=== PATIENT | female | born 1950 | race Caucasian/White ===

== ENCOUNTER 2018-10-23 23:16 | Emergency (ER) | payer MEDICARE, BC, SELFPAY ==
[2018-10-23 23:19] VITALS: BP 178/102; PULSE 72; RESP 18; TEMP 37.2; O2SAT 97
[2018-10-23 23:23] VITALS: BP 159/91; PULSE 70; RESP 18; O2SAT 97
--- NOTE | 2018-10-23 23:36 | W.ED.GENAD ---
Discharge Plan Disposition Patient Disposition: HOME Condition: Good Discharge Details Chief Complaint: EyeProblem Clinical Impression: Visual disturbance Primary Care Provider: Mary Beth Tam V ED Provider: Collins Teixeira Discharge Instructions Additional Instructions: At this time the ultrasound shows no evidence of retinal detachment. Your pressures of your eyes are on the higher side of normal but not requiring medications at this level. Please follow-up promptly with Dr. Josue tomorrow for reassessment. If you notice any worsening of your symptoms, or any new symptoms such as pain in your eyes, change in your vision, dark curtain over your vision, vomiting, diarrhea, fever, chills, shortness of breath, chest pain, numbness, weakness, or fainting , please return immediately to the emergency department for reevaluation. Please follow up with your primary care provider as soon as possible for reassessment and reevaluation. As always, it was a pleasure participating in your medical care today. [facility] Haylie, PJohannaCJohanna [address] [place] [id number] Referrals: EYE GUILLAUME AKHTAR [OTHER] - Discharge Data Discharge Date/Time-TO BE ENTERED AT DEPARTURE: 10/23/18 23:44 Medical Decision Making This is a pleasant 67-year-old female with no significant past medical history except for osteoporosis who presents today for evaluation of occasional lightninglike visual disturbances in her left eye. Symptoms have come and gone throughout the day. There is no associated decrease in vision, dark curtain, dark spots, or eye pain whatsoever. She denies any discomfort at all. She has no history of trauma, irritation to the eye, sensation of foreign body or other abnormality. She denies any history of stroke, or retinal problem in the past. Exam demonstrates a reactive pupil bilaterally, retinal exam is notably difficult in both eyes. Difficulty visualizing posterior structures well. Bedside limited ultrasound demonstrates a borderline left optic nerve at 5 mm, no evidence of retinal detachment whatsoever. Normal retinal contour. Visual acuity is notably normal in both eyes. No other significant abnormalities. Dominick-Pen demonstrates borderline upper limit of normal pressures bilaterally with intraocular pressures being measured at 26 on the left and 24 on the right. Currently the patient has no symptoms, and she denies any visual disturbances at this time. Exam at this time is clinically inconsistent with acute stroke, arterial or venous clot, severe acute angle-closure glaucoma, or retinal detachment. With an otherwise benign work-up I do feel that she can be safely discharged however she does need prompt and close follow-up with optometry as soon as possible. We have sent a referral to Dr. Josue's office where she normally goes, and recommended that she follow-up tomorrow. We discussed red flags which to return. I have extensively reviewed the treatment plan and discharge instructions with the patient. I have addressed all patient concerns at this time. The patient was made aware of what symptoms to monitor for that would warrant a return to the emergency department. Discussed the plan with the patient, they demonstrate verbal understanding and agreement with our assessment and plan at this time. Ocular US Exam type: diagnostic Indication for exam: vision complaint Views obtained: Eye transverse and longitudinal Findings and interpretations: all views were adequate. Retinal contour was normal. Vitreous body was anechoic. Lens was well positioned. No evidence of lens dislocation or retinal detachment. Optic nerve was measured and found to be borderline at 5mm. The patient tolerated the procedure well and there were no complications. HPI General Date/Time Provider Initiated Documentation: 10/23/18 23:16. HPI Narrative: This is a 67-year-old female with no past medical history except for osteoporosis who presents today for visual disturbance in her left eye. Patient states that today in the early afternoon she noticed some flashes in her left eye. And it continued throughout the day, with no significant increase in frequency. She describes it is mild electrical-like visual abnormality. Small little lightening strikes. She denies any trauma to the head, any pain whatsoever in the eye. She denies any dark curtain coming down over her vision. She denies any black spots, central black spots, or speckles. She denies any temporal headache, she denies any neck pain. She denies any numbness tingling or weakness. She denies any other complaints modifying factors. No history of glaucoma. No history of any significant eye problems in the past. She does wear glasses. She denies any contact lens use. She denies any recent activities causing foreign bodies in her eyes. General Stated Complaint: EyeProblem FANTASMA: 2 Review of Systems Review of Systems All systems reviewed & are unremarkable except as noted in HPI and below PFSH Social History Smoking/Tobacco Use Status: Never Alcohol Intake: never Do you feel safe at home: Yes Do you feel safe in your relationship?: Yes Exam Narrative Exam Narrative: 1.Const: Well-nourished, Well-developed, appearing stated age 2.Eyes: Left and right eye: EOMI, PERRL, Peripheral vision intact. No nystagmus. Fundoscopic exam demonstrated no evidence of significant retinal hemorrhage. Exam was notably difficult though in both eyes. Panoptic not available. No evidence of gross abnormality. No external signs of preseptal cellulitis, no redness around the eye, no proptosis. No hyphema, no signs of trauma around the eye, no periorbital emphysema. Visual acuity normal and equal bilaterally. Optic nerve was borderline at 5 mm in width for the left eye. 3.ENT: Atraumatic external nose and ears. Moist MM. Neck: Symmetric, trachea midline, No thyromegaly. 4.CVS: +S1/S2, No murmurs or gallops. Peripheral pulses 2+ and equal in all extremities. Brisk capillary refill in all extremities. 5.RESP: Unlabored respiratory effort. Clear to auscultation bilaterally. No wheezes rales or rhonchi 6.GI: Soft, Nontender/Nondistended, No hepatosplenomegaly. No guarding or rebound. 7.MSK: Normocephalic/Atraumatic, Extremities w/o deformity or ttp No cyanosis or clubbing, Normal movement of all extremities 8.Skin: Warm, Dry. No rashes or lesions. 9.Neuro: market research lead II-XII grossly intact. Sensation grossly intact, no focal neurologic deficits. 10.Psych: (AAO) x3. Appropriate mood and affect Course Vital Signs Temperature 37.2 C 10/23/18 23:19 Pulse 72 10/23/18 23:19 Respiratory Rate 18 10/23/18 23:19 Blood Pressure 178/102 H 10/23/18 23:19 Pulse Oximetry 97 10/23/18 23:19 Temperature 37.2 C 10/23/18 23:19 Temperature Source Tympanic 10/23/18 23:19 Pulse 70 10/23/18 23:23 Respiratory Rate 18 10/23/18 23:23 Respiratory Effort 10/23/18 23:22 Blood Pressure 159/91 H 10/23/18 23:23 Pulse Oximetry 97 10/23/18 23:23 Oxygen Delivery Method Room Air 10/23/18 23:23 Oxygen Flow Rate 0 10/23/18 23:23 Pain Level 0 10/23/18 23:19
--- NOTE | 2018-10-23 23:41 | NUR.NOTE ---
Nursing Note: faxed with dr rizzo to [facility] 10/24/2018
[2018-10-23 23:45] VITALS: BP 159/91; PULSE 70; RESP 18; O2SAT 97
== END 2018-10-23 23:44 | disposition home or self-care (01) ==
PROVIDERS: Emergency Provider Student in an Organized Health Care Education/Training Program; PCP Family Medicine
DX: H53.19 Other subjective visual disturbances (principal)
CPT/HCPCS: 99284

== ENCOUNTER 2019-03-13 14:52 | Outpatient (CLI) | payer MEDICARE, BC, SELFPAY ==
--- NOTE | 2019-03-13 14:56 | DI.RAD_ITS ---
EXAM: XR LUMBAR SPINE COMPLETE CLINICAL HISTORY: LOW BACK PAIN, M54.5 TECHNIQUE: Five views were obtained. COMPARISON: No exams were available for comparison FINDINGS: The intervertebral disc spaces appear fairly well maintained except for slight narrowing at L4-5. No compression fracture identified. Moderate hypertrophic spurring of the vertebral endplates and face t joints noted. No evidence of spondylolysis or spondylolisthesis. Mild DJD of the SI joints noted. Mild right convex scoliosis noted. IMPRESSION: Degenerative changes as described above.
== END 2019-03-13 15:12 ==
PROVIDERS: PCP Family Medicine; Visit Provider Specialist/Technologist Athletic Trainer
DX: M54.5 Low back pain (principal); M53.3 Sacrococcygeal disorders, not elsewhere classified; M47.817 Spondylosis without myelopathy or radiculopathy, lumbosacral region
CPT/HCPCS: 72110

== ENCOUNTER 2019-06-15 01:58 | Outpatient (CLI) | payer MEDICARE, BC, SELFPAY ==
--- NOTE | 2019-06-15 | DI.DEXA_ITS ---
EXAM: XR DEXA BONE DENSITY W/WO MICHAEL CLINICAL HISTORY: SCREENING FOR OSTEOPOROSIS IN POSTMENOPAUSAL WOMAN, Z78.0 FINDINGS: DEXA scan was performed according to the usual protocol. Findings for lumbar spine scanning are T-sc ore of -2.7, prior examination of October 2011 showed lumbar T-score -2.6. Findings for left hip scanning are T-score -1.7 with left femoral neck T-score -1.8. Previous examin ation 2011 showed left hip T-score -1.5. Findings for left forearm scanning show T-score -3.9. Prior examination of 2011 showed forearm T-sco re of -3.3. The lateral vertebral scanogram shows no evidence of a vertebral compression fracture. IMPRESSION: Findings are consistent with osteoporosis according to the WHO criteria. No evidence of a vertebral compression fracture at this time.
--- NOTE | 2019-06-15 | DI.MAMMO_ITS ---
EXAM: MG MAMMO SCREENING CLINICAL HISTORY: SCREENING, Z12.39 TECHNIQUE: Mammograms were interpreted according to the usual protocol including computer analysis w [employer] CAD system, tomosynthesis and C-view imaging. FINDINGS: The breasts are heterogeneously dense. No dominant mass or clumped microcalcification identified in either breast. The current examination is compared with previous examination of April 2014 and ere has been no gross interval change in appearance in comparison with previous examination. BI-RADS Cat 1 - Negative Breast density category C. IMPRESSION: No specific evidence of malignancy at this time. Routine screening examinations are suggested at yea rly intervals in this age group according to the ACS ACR guidelines. Category 1. Breast density, deanna Cartagena
--- NOTE | 2019-06-15 08:52 | DI.MRI_ITS ---
EXAM: MR LUMBAR SPINE WO CLINICAL HISTORY: LOW BACK PAIN, LEG PAIN, M54.5,M79.606. TECHNIQUE: Multiplanar multisequence MRI was performed. COMPARISON: ABD PELVIS WITH CONTRAST from 10/12/2010 FINDINGS: MR examination of the lumbosacral spine was performed according to the usual protocol. Visualized po rtions of the uterus suggest uterine enlargement with uterine fibroid seen anteriorly as noted on [place] or abdominal CT of September 2010. No significant bony signal abnormality is seen. Mild hypertrophic facet arthropathy noted at L5-S1 b ilaterally and moderate facet arthropathy noted bilaterally at L4-5. There is no evidence of a centr al canal spinal stenosis or neural foraminal stenosis. The conus medullaris appears intact as visual ized. Artifact obscures superior portion of the conus. There is a mild broad-based disc herniation at L4-5 which is predominantly right paracentral with que stion slight impingement on right L5 nerve root in the lateral recess. The left lateral recess is al so mildly narrowed. No other disc herniation identified in the lumbar region. IMPRESSION: Mild broad-based, predominantly right paracentral disc herniation at L4-5, question impingement on ri ght L5 nerve root. Please correlate clinically. DATA REPOSITORY:
== END 2019-06-15 02:18 ==
PROVIDERS: PCP Family Medicine; Visit Provider Nurse Practitioner Family
DX: M81.0 Age-related osteoporosis without current pathological fracture (principal); Z78.0 Asymptomatic menopausal state; Z12.31 Encounter for screening mammogram for malignant neoplasm of breast; M54.5 Low back pain; M79.606 Pain in leg, unspecified; D25.9 Leiomyoma of uterus, unspecified; N85.2 Hypertrophy of uterus; M47.27 Other spondylosis with radiculopathy, lumbosacral region; M51.16 Intervertebral disc disorders with radiculopathy, lumbar region
CPT/HCPCS: 77063; 77067; 77080; 72148

== ENCOUNTER 2019-07-07 08:08 | Emergency (ER) | payer MEDICARE, BC, SELFPAY ==
[2019-07-07 08:14] VITALS: BP 153/80; PULSE 89; RESP 18; TEMP 37.1; O2SAT 98
--- NOTE | 2019-07-07 08:20 | ED.GENADUL_ITS ---
Discharge Plan Disposition Patient Disposition: HOME Condition: Stable Discharge Details Chief Complaint: Orthopedic Clinical Impression: Closed fracture of right distal radius and ulna Primary Care Provider: Mary Beth Tam V ED Provider: Angelika Jorgensen Home Meds and New Rx's Prescriptions: No Action ibuprofen [IBU-200] 200 mg Tablet 200 mg PO Q8H PRNRF: 0 Discharge Instructions Instructions: Wrist Fracture in Adults (ED) Additional Instructions: Follow-up with [facility] in 1 week. Keep splint on until orthopedic appointment. Do not get wet. If your fingers are cold blue numb or tingly you may loosen Iván wraps, if no improvement please return to the ED. Take Tylenol or ibuprofen as needed for pain and swelling. Referrals: Yong Leo MD [ [facility] STAFF PHYSICIAN] - Medical Decision Making 0830: Patient given 650 mg Tylenol p.o., hematoma block performed as noted in procedure note above 7 mls of 1% lidocaine. Patient tolerated well. 0856: Patient comfortable, X-ray shows distal comminuted, slightly displaced radius and ulna fracture. 0856: Ortho construction operations manager paged. EXAM: XR WRIST RT COMPLETE CLINICAL HISTORY: deformity. TECHNIQUE: 2D digital imaging was performed. COMPARISON: No exams were available for comparison FINDINGS: BONES: There is a minimally displaced fracture at the base of the ulnar styloid process. There is a comminuted fracture of the distal metaphysis of the right radius. The radial fracture appears to be intra-articular posteriorly and medially. JOINTS: The carpal bones are normally aligned. SOFT TISSUE: There is soft tissue swelling about the wrist. IMPRESSION: Distal right radial and ulnar fractures as described above. 0948: MD Leo orthopedic at bedside for patient eval, patient placed in finger traps reduction patient placed in Ortho-Glass volar splint, tolerated well. Additional lidocaine injected dorsally for hematoma block patient tolerated well. 0959: Post reduction x-ray performed, plan to follow up in ortho clinic in 1 week. Instructed patient to take Tylenol or ibuprofen as needed for pain and s welling given an ice pack. Instructed to keep elevated. Strict return instructions given and splint care discussed. Volar splint replaced counterpressure applied dorsally to the wrist and Iván wrap loosened patient reports tingling in her thumb. This text was generated using Dragon dictation system, please disregard any oddities of phrase or misspellings. HPI General Mode of arrival: ambulatory . Date/Time Provider Initiated Documentation: 07/07/19 08:11 . Limitations to Documentation: no limitations . Information obtained by: patient . HPI Narrative: 68-year-old female presents with right wrist deformity after a slip and fall this morning down 4 stairs in her basement. She reports a FOOSH type fall landing on her outstretched arm. She denies any neck or back pain or any other injuries. She is alert and oriented x4 no loss of consciousness. Distal pulses are intact cap refill less than 3 seconds she does have full range of motion noted to her fingers. She did take ibuprofen at home prior to arrival. Related Data Home Medications Medication Instructions Recorded Confirmed ibuprofen [IBU-200] 200 mg PO Q8H PRN 07/07/19 07/07/19 Allergies Allergy/AdvReac Type Severity Reaction Status Date / Time No Known Allergies Allergy Unverified 07/07/19 08:13 General Stated Complaint: Orthopedic FANTASMA: 3 Review of Systems Narrative: Constitutional: Negative for weight loss, alert and oriented, well groomed, normal body habitus, appears comfortable. HEENT: Denies trauma, headaches, blurry vision, nasal discharge, sore throat, trouble swallowing. Chest: Denies chest pain, palpitations, irregular rhythm, hypertension. Respiratory: Denies Shortness of breath, cough, hemoptysis. GI: Denies abdominal pain, nausea, vomiting, diarrhea, constipation. : Denies dysuria, hematuria, flank pain, rectal bleeding. Extremities: Right wrist tenderness and deformity. Neuro: Denies dizziness, blurry vision, weakness, syncope, headache or facial numbness. Hematologic: Denies easy bruising, intolerance to heat or cold, hair loss. [facility] Social History Smoking/Tobacco Use Status: Never Alcohol Intake: never Drug use: Never Substance use type: does not use Do you feel safe at home: Yes Do you feel safe in your relationship?: Yes Exam Narrative Exam Narrative: Constitutional: Alert and oriented x3. Appears stated age. Normal body habitus. Head: Normocephalic, no trauma. Eyes: Pupils PERRLA, Red reflex noted, EOM's intact. Eyelids symmetrical without lesions, discharge, or swelling. ENT: Bilateral TM's WNL, External ear normal to inspection, no mastoid TTP, swelling, or erythema, Nasal turbinates WNL, no nasal discharge. Normal dentition, Posterior pharynx WNL, no exudate. Chest: RRR, Normal S1, S2, distal pulses intact. Resp: Lungs clear to auscultation bilaterally, no wheezes, rales, or rhonchi. Musculoskeletal: Right wrist deformity, swelling tenderness. She has a small superficial abrasion noted to her right middle finger knuckle. Distal radial pulses intact cap refill less than 3 seconds. Skin: No suspicious rashes or lesions. Capillary refill less than 2 sec. Neurologic: Cranial nerves II-XII intact. Alert and oriented x 3. DTR's intact. Hematologic/Lymphatic: No ecchymosis, no lymphadenopathy. Course Vital Signs Vital signs: Vital Signs Temperature 37.1 C 07/07/19 08:14 Pulse 89 07/07/19 08:14 Respiratory Rate 18 07/07/19 08:14 Blood Pressure 153/80 H 07/07/19 08:14 Pulse Oximetry 98 07/07/19 08:14 Temperature 37.1 C 07/07/19 08:14 Temperature Source Temporal Artery Scan 07/07/19 08:14 Pulse 89 07/07/19 08:14 Respiratory Rate 18 07/07/19 08:14 Respiratory Effort Non-Labored 07/07/19 08:17 Blood Pressure 153/80 H 07/07/19 08:14 Blood Pressure Position Sitting 07/07/19 08:14 Pulse Oximetry 98 07/07/19 08:14 Oxygen Delivery Method Room Air 07/07/19 08:14 Oxygen Flow Rate 0 07/07/19 08:14 Pain Level 7 07/07/19 08:18 Procedures Nerve Block Nerve Block 1: Time out performed: Yes Local Anesthetic: Lidocaine 1% Amount of anesthesia used (mL): 7 Side: right Nerve Blocks: hematoma block (Right wrist) Procedure Successful: Yes Patient Tolerated Procedure: well and no complications Complications: none Orthopedic Joint Reduction Joint #1: Time Out Performed: Yes Side: right Joint Reduction Location: wrist Analgesia: hematoma block Local Anesthesia: Lidocaine 1% Amount of anesthesic used (mL): 10 Technique used: traction/counter-traction and direct manipulation Post-reduction neuro exam: intact Post-reduction vascular: intact Post Reduction X-Ray Obtained: Yes Splint Applied: Yes Patient Tolerated Procedure: well and no complications Orthopedic Splinting/Casting Injury #1: Side: right Upper Extremity Injury Location: wrist Upper Extremity Immobilizer: volar splint and Iván wrap
[2019-07-07] MEDS: Acetaminophen 325 MG TAB 650 MG PO (08:23)
[2019-07-07] MEDS: Lidocaine 1% Pres-Free 30 ML VIAL IJ (08:24)
--- NOTE | 2019-07-07 08:42 | DI.RAD_ITS ---
EXAM: XR WRIST RT COMPLETE CLINICAL HISTORY: deformity. TECHNIQUE: 2D digital imaging was performed. COMPARISON: No exams were available for comparison FINDINGS: BONES: There is a minimally displaced fracture at the base of the ulnar styloid process. There is a comminuted fracture of the distal metaphysis of the right radius. The radial fracture appears to be intra-articular posteriorly and medially. JOINTS: The carpal bones are normally aligned. SOFT TISSUE: There is soft tissue swelling about the wrist. IMPRESSION: Distal right radial and ulnar fractures as described above. DATA REPOSITORY: RADIATION DOSE DELIVERED:
--- NOTE | 2019-07-07 09:45 | DI.RAD_ITS ---
EXAM: XR WRIST RT LIMITED CLINICAL HISTORY: post reduction. TECHNIQUE: 2D digital imaging was performed. COMPARISON: XR WRIST RT COMPLETE from 07/07/2019 FINDINGS: BONES: There is again seen a distal right radial fracture. There has been improved alignment of the fracture compared to the prior examination. The dorsal angulation appears to have been completely ne chad completely resolved. The ulnar styloid process fracture is stable. JOINTS: The carpal bones are normally aligned. SOFT TISSUE: The patient's wrist is in a cast. IMPRESSION: Successful reduction of the distal right radial fracture. Stable ulnar styloid process fracture. DATA REPOSITORY: RADIATION DOSE DELIVERED:
--- NOTE | 2019-07-07 10:33 | W.ORTHOCONSU ---
Date of service: 07/07/19 Time of Service: 09:33 History of Present Illness History of Present Illness Chief Complaint: Right wrist pain Narrative: Yu is an active and healthy 68-year-old who fell down 4 steps going to her basement this morning. She landed on outstretched right hand. She had immediate pain and some notable deformity. She came to the emergency department for evaluation. She denies numbness or tingling. She denies injury to her shoulder or elbow. She denies head trauma or loss of consciousness. She reports no significant premorbid pain or dysfunction of the right hand. She is right-hand dominant. Consult Reason Right wrist pain Assessment and Plan Assessment and plan (1) Closed fracture of right distal radius and ulna: Status: Acute Assessment and plan: Yu is a 68-year-old who suffered a displaced distal radius and ulna fracture. A hematoma block was administered and the right wrist was closed reduced by Blanca Holloway of the ED using finger traps and gentle manipulation. Postreduction x-rays show improvement but yet some residual dorsal angulation of about 5 degrees. At this point, this is acceptable and we will continue to treat in a splint. I will plan to see her back in 1 week for repeat x-rays. She should keep it elevated over the next few days to limit swelling and pain. Qualifiers: Encounter type: initial encounter Qualified Code(s): S52.501A - Unspecified fracture of the lower end of right radius, initial encounter for closed fracture; S52.601A - Unspecified fracture of lower end of right ulna, initial encounter for closed fracture Review of Systems All systems reviewed & are unremarkable except as noted in HPI and below [facility] Social History Smoking/Tobacco Use Status: Never Alcohol Intake: never Drug use: Never Substance use type: does not use Do you feel safe at home: Yes Do you feel safe in your relationship?: Yes Exam Const General: cooperative, healthy appearing and no acute distress Nutritional Appearance: average body habitus Orientation: alert, awake and oriented x3 Neuro Sensory Exam: upper extremity right exam normal Extrem Right upper extremity: wrist Details: abnormal to inspection Details: obvious deformity, tenderness Location: of the distal radius, swelling Location: of the dorsal wrist, abnormal ROM, deformity (Mild dorsal and radial prominence), normal vascular exam and radial pulse present; no abrasions, no lacerations and no ecchymosis Psych Mental Status: mental status grossly normal Mood: congruent mood Attitude: cooperative Results Last Vital Signs Temp 98.8 F 07/07/19 08:14 Pulse 89 07/07/19 08:14 Resp 18 07/07/19 08:14 BP 153/80 H 07/07/19 08:14 Pulse Ox 98 07/07/19 08:14 Imaging Imaging Studies: X-ray of the right wrist demonstrates a displaced and slightly comminuted distal radius and ulna fracture. There is some notable shortening, dorsal angulation, and radial flattening.
== END 2019-07-07 10:15 | disposition home or self-care (01) ==
PROVIDERS: Emergency Provider Registered Nurse Emergency; PCP Family Medicine
DX: S52.571A Other intraarticular fracture of lower end of right radius, initial encounter for closed fracture (principal); S52.614A Nondisplaced fracture of right ulna styloid process, initial encounter for closed fracture; W10.8XXA Fall (on) (from) other stairs and steps, initial encounter; Y92.008 Other place in unspecified non-institutional (private) residence as the place of occurrence of the external cause
CPT/HCPCS: 99252; 99283; 25605; 73100; 73110

== ENCOUNTER 2019-07-08 10:02 | Outpatient (REF) | payer MEDICARE, BC, SELFPAY ==
[2019-07-08 20:07] LABS: Abs Immature Grans 0.01 k/cumm (0.0-0.09); Absolute Basophil Count 0.01 k/cumm (0.0-0.2); Absolute Eosinophil Count 0.04 k/cumm (0.0-0.7); Absolute Lymphocyte Count 2.01 k/cumm (1.2-3.4); Absolute Monocyte Count 0.76 k/cumm (0.11-0.7); Absolute Neutrophil Count 4.25 k/cumm (1.2-6.7); Basophils % 0.1; Eosinophils % 0.6; HCT 38.8 % (36.0-46.0); HGB 12.4 g/dL (12.0-15.5); Immature Grans % 0.1 %; Lymphocytes % 28.4; Mean Corpuscular Hemoglobin 27.7 pg (27.0-33.0); Mean Corpuscular Volume 86.6 fL (80-95); Monocytes % 10.7; Neutrophils % 60.1; Platelet Count 316 x1000/uL (130-400); RBC 4.48 m/cumm (4.00-5.20); RBC Distribution Width 14.5 % (11.7-14.6); White Blood Cell Count 7.08 k/cumm (4.4-10.8)
[2019-07-08 20:53] LABS: ESR 70 mm/hr (0-30)
[2019-07-08 21:15] LABS: Anion Gap 9.5 mmol/L (3-11); BUN 19 mg/dL (7-18); CO2 25.5 mmol/L (21.0-32.0); Chloride 103 mmol/L (98-107); Glucose 108 mg/dL (74-106); Potassium 4.4 mmol/L (3.5-5.1); Sodium 138 mmol/L (136-145); TSH 5.37 uIU/mL (0.36-3.74); Vitamin B12 525 pg/mL (193-986)
[2019-07-08 21:27] LABS: C-Reactive Protein 1.63 mg/dL (0.0-0.3); Creatine Kinase 36 U/L (26-192)
[2019-07-09 04:38] LABS: Vitamin D 25 Total 26.7 ng/ml (30-100)
== END 2019-07-08 10:22 ==
LOC: NCHCN 10:02
PROVIDERS: PCP Family Medicine; Visit Provider Nurse Practitioner Family
DX: M81.0 Age-related osteoporosis without current pathological fracture (principal); M25.531 Pain in right wrist; M79.606 Pain in leg, unspecified; R94.6 Abnormal results of thyroid function studies
CPT/HCPCS: 80048; 82306; 82550; 85652; 82607; 84443; 85025; 86140

== ENCOUNTER 2019-07-13 08:28 | Outpatient (CLI) | payer MEDICARE, BC, SELFPAY ==
--- NOTE | 2019-07-13 08:00 | DI.RAD_ITS ---
EXAM: XR FOREARM RT CLINICAL HISTORY: distal radius and ulnar fracture TECHNIQUE: COMPARISON: XR DEXA BONE DENSITY W/WO MICHAEL from 06/15/2019 XR WRIST RT LIMITED from 07/07/2019 FINDINGS: Two views were obtained and show previously described fractures of distal radius and ulnar styloid, n o gross interval change in alignment of fracture fragments comparison examination of July 06. The forearm is in a splint. No additional bony abnormality seen involving the forearm. IMPRESSION:
== END 2019-07-13 08:48 ==
PROVIDERS: PCP Family Medicine; Visit Provider Physician Assistant Surgical
DX: S52.571A Other intraarticular fracture of lower end of right radius, initial encounter for closed fracture (principal); S52.614A Nondisplaced fracture of right ulna styloid process, initial encounter for closed fracture; W10.8XXD Fall (on) (from) other stairs and steps, subsequent encounter; S52.501D Unspecified fracture of the lower end of right radius, subsequent encounter for closed fracture with routine healing; S52.601D Unspecified fracture of lower end of right ulna, subsequent encounter for closed fracture with routine healing
CPT/HCPCS: 99213; 73090

== ENCOUNTER 2019-07-27 10:22 | Outpatient (CLI) | payer MEDICARE, BC, SELFPAY ==
--- NOTE | 2019-07-27 10:07 | DI.RAD_ITS ---
EXAM: XR WRIST RT COMPLETE CLINICAL HISTORY: R wrist fx TECHNIQUE: 2D digital imaging was performed. COMPARISON: XR WRIST RT COMPLETE from 07/07/2019 XR WRIST RT LIMITED from 07/07/2019 XR FOREARM RT from 07/13/2019 FINDINGS: The splint has been removed. There is question of increased impaction ventral angulation the distal radial fracture when compared with the previous exams versus differences in projection. The ulnar s tyloid fracture is nondisplaced.
== END 2019-07-27 10:42 ==
PROVIDERS: PCP Family Medicine; Referring Provider Family Medicine; Visit Provider Student in an Organized Health Care Education/Training Program
DX: S52.501D Unspecified fracture of the lower end of right radius, subsequent encounter for closed fracture with routine healing; S52.601D Unspecified fracture of lower end of right ulna, subsequent encounter for closed fracture with routine healing; X58.XXXD Exposure to other specified factors, subsequent encounter
CPT/HCPCS: 99213; 73110; L3908

== ENCOUNTER 2019-07-31 09:07 | Outpatient (CLI) | payer MEDICARE, BC, SELFPAY ==
[2019-08-01 15:51] LABS: COVID-19 RT-PCR UVMMC Result Negative (Negative)
== END 2019-07-31 09:27 ==
PROVIDERS: PCP Family Medicine; Visit Provider Student in an Organized Health Care Education/Training Program
DX: Z11.59 Encounter for screening for other viral diseases (principal); Z01.818 Encounter for other preprocedural examination
CPT/HCPCS: U0003

== ENCOUNTER 2019-07-31 10:27 | Outpatient (REF) | payer MEDICARE, BC, SELFPAY ==
[2019-07-31 19:22] LABS: C-Reactive Protein 2.46 mg/dL (0.0-0.3); TSH 3.83 uIU/mL (0.36-3.74)
[2019-07-31 19:39] LABS: ESR 84 mm/hr (0-30)
== END 2019-07-31 10:47 ==
LOC: NCHCN 10:27
PROVIDERS: PCP Family Medicine; Visit Provider Nurse Practitioner Family
DX: R89.9 Unspecified abnormal finding in specimens from other organs, systems and tissues (principal); M79.606 Pain in leg, unspecified; R94.6 Abnormal results of thyroid function studies
CPT/HCPCS: 85652; 84443; 86140

== ENCOUNTER 2019-08-04 07:53 | Day surgery (SDC) | payer MEDICARE, BC, SELFPAY ==
[2019-08-04 08:04] VITALS: BP 149/77; PULSE 88; RESP 16; TEMP 36.1; O2SAT 98
[2019-08-04] MEDS: Lactated Ringers 1,000 ML 80 ML IV (08:26)
[2019-08-04] MEDS: Bupivacaine 0.5% Pres-Free 30 ML VIAL (08:52)
[2019-08-04] MEDS: Bupivacaine LIPOSOME/PF 133 MG/10 ML VIAL IJ (08:52)
[2019-08-04] MEDS: ceFAZolin 1 GM/50 ML BAG IVPB (09:25)
--- NOTE | 2019-08-04 09:27 | W.PM.DSUDISC ---
Discharge Plan Disposition Patient Disposition: HOME Condition: Good Discharge Details Reason For Visit: WRIST FX Attending Provider: Yong Leo Primary Care Provider: Mary Beth Tam V Home Meds and New Rx's Prescriptions: New hydrocodone-acetaminophen 5-325 mg tablet 1 tab PO Q6H PRN PRN (Reason: pain) Qty: 12 RF: 0 acetaminophen 500 mg tablet 500 mg PO Q6H PRN PRN (Reason: pain) Qty: 60 RF: 3 ibuprofen 600 mg tablet 600 mg PO TID PRNQty: 60 RF: 3 Discontinued ibuprofen [IBU-200] 200 mg Tablet 200 mg PO Q8H PRNRF: 0 acetaminophen [Tylenol Extra Strength] 500 mg Tablet 500 mg PO Q8H PRNRF: 0 Discharge Instructions Additional Instructions: Activity: You should keep the hand/wrist elevated as much as possible for the first few days. You may use the other fingers as tolerated but avoid trying to do too much too soon. You may perform light activities with the splint in place. Dressing/Cast: Your splint should stay in place at all times. Do NOT get it wet. You may loosen the RYAN wrap if you feel it is too tight and then rewrap more loosely. Medications: - You should take Tylenol and Ibuprofen for baseline pain control. - You have been prescribed a stronger pain medication, Hydrocodone, for breakthrough pain. - You may apply ice over the wrist, just double bag so it doesn't get wet. Follow-up: 10-14 days Stand Alone Forms: Anes.Nerve Block Instructions, DSU Post op Instructions, Meaghan Viera (DSU) Referrals: Yong Leo MD [ [facility] STAFF PHYSICIAN] - Equipment/Supplies: Splint and Sling Activity:: Elevate Remove Dressings/Wound Care:: Do Not Remove Shower/Bathe:: Cover Diet:: As Tolerated Discharge Orders Discharge Orders: Discharge Order (Routine); Ordered 08/04/19 Ordered By: Yong Leo DS: Diagnosis Discharge Diagnosis (1) Closed fracture of right distal radius and ulna: Status: Acute
--- NOTE | 2019-08-04 10:56 | DI.RAD_ITS ---
EXAM: XR WRIST RT LIMITED CLINICAL HISTORY: RIGHT DISTAL RADIUS FX TECHNIQUE: COMPARISON: CR XR WRIST RT COMPLETE from 07/27/2019 FINDINGS: C-arm fluoroscopy was utilized by Dr. Leo during reduction and internal fixation of fracture of the distal radius. Hard copies show plate and screw fixation in place with reduction of the fracture fragments. Fluoro time was 1 minutes 20 seconds. IMPRESSION:
[2019-08-04 11:43] VITALS: BP 131/75; PULSE 69; RESP 16; TEMP 36.5; O2SAT 98
--- NOTE | 2019-08-04 21:04 | W.PM.OP ---
Date of service: 08/04/19 Time of Service: 11:04 Operative Note Operative Note DATE OF PROCEDURE: 08/04/19 PRE-OP DIAGNOSIS: Right Distal Radius Fracture POST-OP DIAGNOSIS: same PROCEDURE: Open Reduction and Internal Fixation of the Right Distal Radius SURGEON: Yong Leo CREDIT RISK REVIEW OFFICER: Mary Beth Hester ANESTHESIA: MAC and regional ESTIMATED BLOOD LOSS: 10 PATHOLOGY: none sent COMPLICATIONS: None Patient was transported to: PACU Patient's condition: stable Implants: Synthes Locking Volar Distal Radius Plate Indications: Yu is a 68 year old female who suffered a fall. She was initially manged wtih a closed reduction. Unfortunately, while the reduction was successful for the first week, at week 3 there was loss of reduction. There was notable shortening of the fracture with significant ulnar positivity. Given the radiographic findings, I recommended operative fixation. I reviewed the risks of the procedure to include bleeding, infection, pain, stiffness, malunion, nonunion, hardware failure, hardware prominence, damage to nerves and vessels, clot. Despite these risks, Yu elected to proceed. Findings: There was a distal radius fracture with some early callus formation with signficiant shortening. This was reduced and then fixed with a volar plate and screws. Procedure Description: Yu was greeted in the preoperative holding area. His identity and surgical site was identified by the patient and then marked. The consent was reviewed and then signed. The history and physical was updated. Regional anesthetic, supraclavicular block, was administered in the PACU. The patient was then taken back to the operating room. A MAC anesthetic was administered. Once in the supine position all bony prominences were padded. The right arm was placed on the hand table. This was then prepped with ChloraPrep and draped in a standard fashion. Prophylactic antibiotics in the form of cefazolin were administered. A timeout was performed for safe surgery. The proposed surgical site was anesthetized with 0.5% bupivacaine with epinephrine. This linear incision was placed directly on top of the FCR tendon. The skin was incised sharply down through the subtenons tissue. Blunt dissection identified the FCR tendon and its sheath. The sheath was incised with a knife and the tendon was retracted ulnarly. The floor of the FCR tendon sheath was incised sharply revealing the underlying flexor pollicis longus. The FPL muscle and tendon was retracted ulnarly with blunt dissection exposing the quadratus for Sanya. A ulnar-based flap of pronator quadratus was made by excising the distal and radial aspect of the pronator quadratus. This was then fully elevated with a abbott elevator exposing the volar surface of the distal radius and the fracture. Early callus formation was removed sharply with a rongeur. A curette and [place] were also used to identify the fracture plane and free of any early callus formation. Irrigation of the fracture site was performed for better visualization. The fracture fragments were identified. Manual manipulation and reduction was performed. This was held provisionally by hand to confirm adequate release to afford anatomic reduction. Once this was confirmed the fracture reduction was held with a series of clamps. A Synthes volar locking distal radius plate was then chosen which adequately fit the distal radius leaving at least 3 screws proximal to the fracture. The plate was pinned in position and confirmed to be in adequate position on the x-ray. A clamp was used to compress the distal aspect the plate against the bone. A single nonlocking 2.4 millimeters screw was placed distally to hold the plate against the distal aspect of the distal radius. The remainder of the holes in the distal section of the plate were then filled with 2.4 mm locking screws. After these were placed x-ray was used to confirm appropriate positioning. I made sure there is no interarticular penetration. I also checked for any screws which were too long. The nonlocking screw was replaced with a locking screw. I then completed the reduction but sliding the plate distal to reduce the loss of radial height and scured with an olive wire proximally. I then placed 3 nonlocking 2.7 mm cortical screws in the shaft proximal to the fracture. These had excellent purchase and bite. I then placed a portion of 3cc of Norian, calcium phosphatea. This was watched on flurorscopy to ensure no extravasation. Once all screws are in place another x-ray was obtained confirming appropriate plate position as well as fracture reduction. I also performed a dorsal sunrise view to ensure that there are no screws penetrating the extensor surface of the distal radius. The pronator quadratus was partially reapproximated with a 0 Vicryl. This was done to cover the distal aspect of the plate as much as possible. The deep tissues were then reapproximated with a 3-0 Vicryl. The skin was closed with a 4-0 nylon. Wound was dressed with Xeroform, 4 x 4's, web roll. A short arm splint was then applied. At the end the case all counts were correct. The patient was transferred back to the PACU in stable condition suffering no notable complications.
== END 2019-08-04 12:37 | disposition home or self-care (01) ==
PROVIDERS: PCP Family Medicine; Visit Provider Student in an Organized Health Care Education/Training Program
PROC: (CPT 25607; principal; 2019-08-04 09:45)
DX: S52.551A Other extraarticular fracture of lower end of right radius, initial encounter for closed fracture (principal); W19.XXXA Unspecified fall, initial encounter
CPT/HCPCS: 25607; C1713; 76942; 73100; J0690; J1885; J2001; J2250; J2405; J2704; L3650

== ENCOUNTER 2019-08-20 12:28 | Outpatient (CLI) | payer MEDICARE, BC, SELFPAY ==
--- NOTE | 2019-08-20 11:45 | DI.RAD_ITS ---
EXAM: XR WRIST RT LIMITED CLINICAL HISTORY: f/u R wrist ORIF. TECHNIQUE: 2D digital imaging was performed. COMPARISON: CR XR WRIST RT COMPLETE from 07/27/2019 CR XR WRIST RT LIMITED from 08/04/2019 FINDINGS: Has been no change in the alignment of the fixation plate are along the volar aspect of the distal ra dius. The fracture alignment appears anatomic and unchanged. Nondisplaced ulnar styloid fracture is unchanged. No new abnormalities are seen. DATA REPOSITORY: RADIATION DOSE DELIVERED:
== END 2019-08-20 12:48 ==
PROVIDERS: PCP Family Medicine; Referring Provider Family Medicine; Visit Provider Student in an Organized Health Care Education/Training Program
DX: S52.571D Other intraarticular fracture of lower end of right radius, subsequent encounter for closed fracture with routine healing (principal); S52.614D Nondisplaced fracture of right ulna styloid process, subsequent encounter for closed fracture with routine healing; S52.501D Unspecified fracture of the lower end of right radius, subsequent encounter for closed fracture with routine healing; X58.XXXD Exposure to other specified factors, subsequent encounter
CPT/HCPCS: 73100

== ENCOUNTER 2019-09-17 11:50 | Outpatient (CLI) | payer MEDICARE, BC, SELFPAY ==
--- NOTE | 2019-09-17 11:52 | DI.RAD_ITS ---
EXAM: XR WRIST RT LIMITED CLINICAL HISTORY: f/u R wrist ORIF TECHNIQUE: COMPARISON: CR XR WRIST RT LIMITED from 08/20/2019 FINDINGS: Two views were obtained show previously described plate and screw fixation of distal radius with no c hange in alignment distal radial fracture fragments comparison with examination August 11. Nondisplaced ulnar styloid fracture again noted as well. IMPRESSION:
== END 2019-09-17 12:10 ==
PROVIDERS: PCP Family Medicine; Referring Provider Family Medicine; Visit Provider Student in an Organized Health Care Education/Training Program
DX: S52.614D Nondisplaced fracture of right ulna styloid process, subsequent encounter for closed fracture with routine healing; S52.501D Unspecified fracture of the lower end of right radius, subsequent encounter for closed fracture with routine healing; X58.XXXD Exposure to other specified factors, subsequent encounter
CPT/HCPCS: 73100

== ENCOUNTER 2019-11-16 14:18 | Outpatient (CLI) | payer MEDICARE, BC, SELFPAY ==
--- NOTE | 2019-11-16 13:15 | DI.RAD_ITS ---
EXAM: XR WRIST RT LIMITED CLINICAL HISTORY: orif TECHNIQUE: COMPARISON: CR XR WRIST RT LIMITED from 09/17/2019 FINDINGS: Two views were obtained. Previously described plate and screw fixation of fracture of the distal rad ius is again noted with no interval change in alignment in comparison with previous examination September 16. Ulnar styloid fracture remains nondisplaced. IMPRESSION: RADIATION DOSE DELIVERED: Total DLP
== END 2019-11-16 14:38 ==
PROVIDERS: PCP Family Medicine; Referring Provider Family Medicine; Visit Provider Student in an Organized Health Care Education/Training Program
DX: S52.614D Nondisplaced fracture of right ulna styloid process, subsequent encounter for closed fracture with routine healing; S52.501D Unspecified fracture of the lower end of right radius, subsequent encounter for closed fracture with routine healing; X58.XXXD Exposure to other specified factors, subsequent encounter
CPT/HCPCS: 99213; 73100

== ENCOUNTER 2020-01-12 14:00 | Outpatient (RCR) | payer MEDICARE, BC, SELFPAY ==
[2020-01-12] MEDS: Normal Saline Flush 10 ML SYR IVP (14:10)
[2020-01-12 14:48] LABS: BUN 16 mg/dL (7-18); C-Reactive Protein 1.18 mg/dL (0.0-0.3); CREATININE 0.79 mg/dL (0.55-1.02); Calcium 9.4 mg/dL (8.5-10.1); TSH 6.83 uIU/mL (0.36-3.74)
[2020-01-12 15:02] LABS: ESR 61 mm/hr (0-30)
== END 2020-01-23 23:59 | disposition home or self-care (01) ==
LOC: INF 14:00
PROVIDERS: Internal Medicine Endocrinology, Diabetes & Metabolism; PCP Family Medicine; Visit Provider Family Medicine
DX: M81.0 Age-related osteoporosis without current pathological fracture (principal); R89.8 Other abnormal findings in specimens from other organs, systems and tissues
CPT/HCPCS: 36415; 84520; 85652; 96365; 82310; 82565; 84443; 86140; J3489

== ENCOUNTER 2021-01-13 01:34 | Outpatient (RCR) | payer MEDICARE, BC, SELFPAY ==
[2021-01-13] MEDS: Normal Saline Flush 10 ML SYR IVP (13:05)
== END 2021-01-22 23:59 | disposition home or self-care (01) ==
LOC: INF 01:34
PROVIDERS: PCP Family Medicine; Visit Provider Internal Medicine
DX: M81.0 Age-related osteoporosis without current pathological fracture (principal)
CPT/HCPCS: 96365; J3489

== ENCOUNTER 2022-04-03 14:02 | Outpatient (REF) | payer MEDICARE, BC, SELFPAY ==
[2022-04-03 16:21] LABS: Calculated LDL 156 mg/dL (<100); Cholesterol 244 mg/dL (<200); Glucose 99 mg/dL (74-106); HDL Cholesterol 68 mg/dL (40-60); TSH (W/Ref FT4) 9.98 uIU/mL (0.36-3.74); Triglyceride 103 mg/dL (<150)
[2022-04-03 17:15] LABS: FREE T4 0.94 ng/dL (0.76-1.46)
== END 2022-04-03 14:03 | disposition home or self-care (01) ==
LOC: NCHCN 14:02
PROVIDERS: PCP Family Medicine; Visit Provider Nurse Practitioner Family
DX: R89.9 Unspecified abnormal finding in specimens from other organs, systems and tissues (principal); E78.9 Disorder of lipoprotein metabolism, unspecified
CPT/HCPCS: 80061; 82947; 84439; 84443

== ENCOUNTER 2022-04-18 01:10 | Outpatient (CLI) | payer MEDICARE, BC, SELFPAY ==
--- NOTE | 2022-04-18 08:35 | DI.MAMMO_ITS ---
Exam(s) MAMMO SCREENING EXAM: MAMMO SCREENING CLINICAL HISTORY: SCREENING, Z12.39,z12.31 TECHNIQUE: Mammograms were interpreted according to the usual protocol including computer analysis w [employer] CAD system, tomosynthesis and C-view imaging. COMPARISON: 2014 through 2019 FINDINGS: The breasts are composed of heterogeneously dense fibroglandular densities, Breast Density category C . No suspicious masses or suspicious microcalcifications are seen. No skin thickening or abnormal axillary lymph nodes are seen. There has been no significant change from prior exams. IMPRESSION: BI-RADS Category 1, Negative mammogram. Yearly screening mammography is recommended. Breast Density Category C, heterogeneously Dense. The mammogram demonstrates the patient's breast tissue is dense. Dense breast tissue is very common a nd is not abnormal but dense breast tissue can make it harder to find cancer on a mammogram. Also, de nse breast tissue may increase breast cancer risk. This information about the result of the mammogram report was provided to the patient to raise their awareness. Use this report when you speak with the patient about their risks for breast cancer, which includes their family history. At that time, you may recommend additional screening tests (Ultrasound or MRI) as they might be useful based on their r isk. A negative radiographic report should not delay biopsy if a dominant or clinically suspicious mass is present. Up to ten percent of cancers are not identified on mammography. A negative report may reinforce clinical impression. Adenosis and dense breasts may obscure an underlying neoplasm. False positive reports average 6 to 10%.
== END 2022-04-18 01:30 ==
LOC: DI 01:11
PROVIDERS: PCP Family Medicine; Visit Provider Nurse Practitioner Family
DX: Z12.31 Encounter for screening mammogram for malignant neoplasm of breast (principal)
CPT/HCPCS: 77063; 77067

== ENCOUNTER 2022-09-07 00:18 | Outpatient (CLI) | payer MEDICARE, BC, SELFPAY ==
--- NOTE | 2022-09-07 | DI.DEXA_ITS ---
Exam(s) XR DEXA BONE DENSITY W/WO MICHAEL EXAM: XR DEXA BONE DENSITY W/WO MICHAEL CLINICAL HISTORY: OSTEOPOROSIS POST MENOPAUSAL M81.0 TECHNIQUE: Routine DEXA evaluation of the lumbar spine, hip, or forearm. COMPARISON: CR XR DEXA BONE DENSITY W/WO MICHAEL from 06/15/2019 FINDINGS: Performed on a [employer] unit. Lateral image: No compression fracture evident. Listhesis of L4 upon L5 incidentally noted. Lumbar Spine total T-score: -2.6 Prior reading in May 2019 was -2.7. Hip total T-score:-1.7. This is identical reading to the May 2019 study. Independent reading at the level of the femoral neck yields T-score of -1.7 IMPRESSION: Bone mineral density measures in the osteoporosis range. Fracture risk is high Note: Any spine fracture indicates 5x risk for subsequent spine fracture and 2x risk for subsequent h ip fracture. World Health Organization criteria for BMD interpretation classify patients: Normal...... T- Score at or above -1.0 Osteopenic... T- Score between -1.0 and -2.5 Osteoporosis... T-Score at or below -2.5
== END 2022-09-07 00:38 ==
LOC: DI 00:19
PROVIDERS: PCP Family Medicine; Visit Provider Internal Medicine Endocrinology, Diabetes & Metabolism
DX: M81.0 Age-related osteoporosis without current pathological fracture (principal); Z13.820 Encounter for screening for osteoporosis; Z78.0 Asymptomatic menopausal state
CPT/HCPCS: 77080

== ENCOUNTER 2022-11-05 12:13 | Outpatient (REF) | payer MEDICARE, BC, SELFPAY ==
[2022-11-05 16:50] LABS: Calculated LDL 149 mg/dL (<100); Cholesterol 230 mg/dL (<200); HDL Cholesterol 68 mg/dL (40-60); TSH (W/Ref FT4) 12.99 uIU/mL (0.36-3.74); Triglyceride 66 mg/dL (<150)
[2022-11-05 17:08] LABS: FREE T4 0.92 ng/dL (0.76-1.46)
== END 2022-11-05 12:14 | disposition home or self-care (01) ==
LOC: NCHCN 12:13
PROVIDERS: PCP Family Medicine; Visit Provider Nurse Practitioner Family
DX: E78.9 Disorder of lipoprotein metabolism, unspecified (principal); R94.6 Abnormal results of thyroid function studies
CPT/HCPCS: 80061; 84439; 84443

== ENCOUNTER 2022-11-15 14:23 | Outpatient (REF) | payer MEDICARE, BC, SELFPAY ==
[2022-11-15 17:22] LABS: BUN 17 mg/dL (7-18); Calcium 9.3 mg/dL (8.5-10.1); Estimated GFR 60.61 (mL/min/1.73m2)
[2022-11-15 18:17] LABS: Vitamin D 25 Total 33.5 ng/mL (30-100)
== END 2022-11-15 14:24 | disposition home or self-care (01) ==
LOC: NCHCN 14:23
PROVIDERS: PCP Family Medicine; Visit Provider Nurse Practitioner Family
DX: M81.0 Age-related osteoporosis without current pathological fracture (principal); R94.6 Abnormal results of thyroid function studies
CPT/HCPCS: 82306; 84520; 82310; 82565

== ENCOUNTER 2022-12-18 01:39 | Outpatient (RCR) | payer MEDICARE, BC, SELFPAY ==
[2022-12-18] MEDS: Normal Saline Flush 10 ML SYR IVP (14:01)
[2022-12-18] MEDS: ZOLEDRONIC ACID/MANNITOL/WATER 5 MG/100 ML BTL 300 MG IVPB (14:01)
== END 2022-12-22 23:59 | disposition home or self-care (01) ==
LOC: INF 01:39
PROVIDERS: PCP Family Medicine; Visit Provider Nurse Practitioner Acute Care
DX: M81.0 Age-related osteoporosis without current pathological fracture (principal)
CPT/HCPCS: 96365; J3489

== ENCOUNTER 2023-02-04 11:34 | Outpatient (REF) | payer MEDICARE, BC, SELFPAY ==
[2023-02-04 15:42] LABS: FREE T4 1.08 ng/dL (0.76-1.46); TSH 5.22 uIU/mL (0.36-3.74)
== END 2023-02-04 11:35 | disposition home or self-care (01) ==
LOC: NCHCN 11:34
PROVIDERS: PCP Family Medicine; Visit Provider Nurse Practitioner Family
DX: R94.6 Abnormal results of thyroid function studies (principal)
CPT/HCPCS: 84439; 84443

== ENCOUNTER 2023-04-10 09:37 | Outpatient (REF) | payer MEDICARE, BC, SELFPAY ==
[2023-04-10 15:46] LABS: Calculated LDL 147 mg/dL (<100); Cholesterol 235 mg/dL (<200); HDL Cholesterol 73 mg/dL (40-60); TSH 8.73 uIU/mL (0.36-3.74); Triglyceride 77 mg/dL (<150)
== END 2023-04-10 09:38 | disposition home or self-care (01) ==
LOC: NCHCN 09:37
PROVIDERS: PCP Family Medicine; Visit Provider Nurse Practitioner Family
DX: E03.9 Hypothyroidism, unspecified (principal); E78.9 Disorder of lipoprotein metabolism, unspecified
CPT/HCPCS: 80061; 84439; 84443

== ENCOUNTER 2023-07-29 14:16 | Outpatient (REF) | payer MEDICARE, BC, SELFPAY ==
[2023-07-29 16:04] LABS: TSH 1.45 uIU/Ml (0.36-3.74)
== END 2023-07-29 14:17 | disposition home or self-care (01) ==
LOC: NCHCN 14:16
PROVIDERS: PCP Family Medicine; Visit Provider Nurse Practitioner Family
DX: R94.6 Abnormal results of thyroid function studies (principal)
CPT/HCPCS: 84439; 84443

== ENCOUNTER 2024-04-15 13:25 | Outpatient (REF) | payer MEDICARE, BC, SELFPAY ==
[2024-04-15 16:34] LABS: Anion Gap 10.3 mmol/L (3-11); BUN 18 mg/dL (7-18); CO2 25.7 mmol/L (21.0-32.0); Calcium 9.6 mg/dL (8.5-10.1); Calculated LDL 164 mg/dL (<100); Chloride 105 mmol/L (98-107); Cholesterol 253 mg/dL (<200); Estimated GFR 59.86 (mL/min/1.73m2); Glucose 101 mg/dL (74-106); HDL Cholesterol 73 mg/dL (40-60); Sodium 141 mmol/L (136-145); TSH 6.91 uIU/mL (0.36-3.74); Triglyceride 84 mg/dL (<150)
== END 2024-04-15 13:26 | disposition home or self-care (01) ==
LOC: NCHCN 13:25
PROVIDERS: PCP Family Medicine; Visit Provider Physician Assistant Medical
DX: E03.9 Hypothyroidism, unspecified (principal); M81.0 Age-related osteoporosis without current pathological fracture
CPT/HCPCS: 80048; 80061; 82306; 84443

== ENCOUNTER 2024-05-01 00:46 | Outpatient (CLI) | payer MEDICARE, BC, SELFPAY ==
--- NOTE | 2024-05-01 | DI.MAMMO_ITS ---
Exam(s) MAMMO SCREENING EXAM: MAMMO SCREENING CLINICAL HISTORY: Screening, Z12.31 TECHNIQUE: Mammograms were interpreted according to the usual protocol including computer analysis w [employer] CAD system, tomosynthesis and C-view imaging. COMPARISON: 2014 through 2022 FINDINGS: The breasts are composed of heterogeneously dense fibroglandular densities, Breast Density category C . No suspicious masses or suspicious microcalcifications are seen. No skin thickening or abnormal axillary lymph nodes are seen. There has been no significant change from prior exams. IMPRESSION: BI-RADS Category 1, Negative mammogram. Yearly screening mammography is recommended. Breast Density Category C, heterogeneously Dense. The mammogram demonstrates the patient's breast tissue is dense. Dense breast tissue is very common a nd is not abnormal but dense breast tissue can make it harder to find cancer on a mammogram. Also, de nse breast tissue may increase breast cancer risk. This information about the result of the mammogram report was provided to the patient to raise their awareness. Use this report when you speak with the patient about their risks for breast cancer, which includes their family history. At that time, you may recommend additional screening tests (Ultrasound or MRI) as they might be useful based on their r isk. A negative radiographic report should not delay biopsy if a dominant or clinically suspicious mass is present. Up to ten percent of cancers are not identified on mammography. A negative report may reinforce clinical impression. Adenosis and dense breasts may obscure an underlying neoplasm. False positive reports average 6 to 10%.
--- NOTE | 2024-05-01 | DI.RAD_ITS ---
Exam(s) XR KNEE RT 3V AP,LAT,NIKOLE EXAM: XR KNEE RT 3V AP,LAT,NIKOLE CLINICAL HISTORY: Pain in rt knee, M25.561. TECHNIQUE: 2D digital imaging was performed of the right knee. Three views obtained. AP, lateral an d PA tunnel views were obtained. COMPARISON: No exams were available for comparison FINDINGS: BONES: No acute fracture is present. No bony destructive lesion is seen. JOINTS: There is mild narrowing of the lateral femoral tibial joint. The joint spaces are otherwise well maintained. No joint effusion is seen. SOFT TISSUE: Normal. IMPRESSION: Mild narrowing of the lateral femoral tibial joint space. No acute abnormality. DATA REPOSITORY: RADIATION DOSE DELIVERED:
== END 2024-05-01 01:06 ==
LOC: DI 00:46
PROVIDERS: PCP Family Medicine; Visit Provider Physician Assistant Medical
DX: Z12.31 Encounter for screening mammogram for malignant neoplasm of breast (principal); M25.561 Pain in right knee
CPT/HCPCS: 73562; 77063; 77067

== ENCOUNTER 2024-06-03 10:37 | Outpatient (REF) | payer MEDICARE, BC, SELFPAY ==
[2024-06-03 15:39] LABS: Calculated LDL 127 mg/dL (<100); Cholesterol 202 mg/dL (<200); HDL Cholesterol 64 mg/dL (>or=50); TSH 0.52 uIU/mL (0.36-3.74); Triglyceride 57 mg/dL (<150)
== END 2024-06-03 10:38 | disposition home or self-care (01) ==
LOC: NCHCN 10:37
PROVIDERS: PCP Family Medicine; Visit Provider Physician Assistant Medical
DX: E03.9 Hypothyroidism, unspecified (principal)
CPT/HCPCS: 80061; 84443

== ENCOUNTER 2024-08-10 09:30 | Outpatient (REF) | payer MEDICARE, BC, SELFPAY ==
[2024-08-11 00:44] LABS: Creatinine,24hr Ur 0.92 g/24hr (0.60-1.80); Creatinine,Urine 65.68 mg/dL; Total Volume 1450 ml
== END 2024-08-10 09:31 | disposition home or self-care (01) ==
LOC: LBN 09:30
PROVIDERS: PCP Family Medicine; Visit Provider Internal Medicine Endocrinology, Diabetes & Metabolism
DX: M81.0 Age-related osteoporosis without current pathological fracture (principal)
CPT/HCPCS: 81050; 82570

== ENCOUNTER 2024-08-24 11:01 | Outpatient (CLI) | payer MEDICARE, BC, SELFPAY ==
[2024-08-24 11:25] LABS: Calcium 9.4 mg/dL (8.5-10.1)
[2024-08-24 11:30] LABS: ALT 19 U/L (14-59); AST 18 U/L (15-37); Albumin 4.1 g/dL (3.4-5.0); Alkaline Phosphatase 57 U/L (46-116); Anion Gap 8.3 mmol/L (3-11); BUN 17 mg/dL (7-18); Bilirubin, Total 1.3 mg/dL (0.2-1.0); CO2 28.7 mmol/L (21.0-32.0); CREATININE 0.8 mg/dL (0.55-1.02); Calcium 9.3 mg/dL (8.5-10.1); Calculated LDL 77 mg/dL (<100); Chloride 104 mmol/L (98-107); Cholesterol 159 mg/dL (<200); Estimated GFR 78.24 (mL/min/1.73m2); Glucose 104 mg/dL (74-106); HDL Cholesterol 71 mg/dL (>or=50); Potassium 4.1 mmol/L (3.5-5.1); Sodium 141 mmol/L (136-145); Total Protein 7.9 g/dL (6.4-8.2); Triglyceride 59 mg/dL (<150)
[2024-08-24 17:54] LABS: Parathyroid Hormone,Intact 90 pg/mL (19-88)
== END 2024-08-24 11:02 | disposition home or self-care (01) ==
LOC: LBO 11:01
PROVIDERS: Physician Assistant Medical; PCP Family Medicine; Visit Provider Internal Medicine Endocrinology, Diabetes & Metabolism
DX: E78.49 Other hyperlipidemia (principal); M81.0 Age-related osteoporosis without current pathological fracture
CPT/HCPCS: 36415; 80053; 80061; 82310; 83970

== ENCOUNTER 2024-09-02 14:57 | Outpatient (REF) | payer MEDICARE, BC, SELFPAY ==
[2024-09-03 11:56] LABS: Lyme Ab w Rflx to Lyme Confirm Negative (Negative)
[2024-09-05 09:35] LABS: Anaplasma phagocytophilum Negative (Negative); B. miyamotoi PCR Negative (Negative); Babesia divergens/MO-1 Negative (Negative); Babesia duncani Negative (Negative); Babesia microti Negative (Negative); Ehrlichia chaffeensis Negative (Negative); Ehrlichia ewingii/canis Negative (Negative); Ehrlichia muris eauclairensis Negative (Negative)
== END 2024-09-02 14:58 | disposition home or self-care (01) ==
LOC: NCHCN 14:57
PROVIDERS: PCP Family Medicine; Visit Provider Family Medicine
DX: T14.90XA Injury, unspecified, initial encounter (principal); W57.XXXA Bitten or stung by nonvenomous insect and other nonvenomous arthropods, initial encounter
CPT/HCPCS: 87798; 86618

== ENCOUNTER 2025-01-12 08:19 | Outpatient (REF) | payer MEDICARE, BC, SELFPAY ==
--- NOTE | 2025-01-12 08:55 | SKI_PTH ---
PATIENT: Yu Naqvi LOC: [facility] U#:[id number] AGE/SX: 74/F ROOM: RE01/12/[address]: Khadijah Goodrich : 1950 BED: DIS: 01/12/2025 SPEC #: [id number] RECD: 01/12/25 12:00 STATUS: [place] #: [id number] BRIGID: 01/12/25 08:[address]: Khadijah Goodrich DEPT: Surgical Specimen RECD BY: Kari Rodriguez ENTERED: 01/12/25 12:00 SP TYPE: LILO VERA DR: Mary Beth Tam V Tissues: 1 - SKIN BIOPSY(SHAVE/PUNCH) Procedures: IMMUNOPEROXIDASE STAIN SKIN LEVEL 4 Comments: [id number]
== END 2025-01-12 08:20 | disposition home or self-care (01) ==
LOC: LBN 08:19
PROVIDERS: PCP Family Medicine; Referring Provider Family Medicine; Visit Provider Student in an Organized Health Care Education/Training Program
DX: L30.8 Other specified dermatitis (principal)
CPT/HCPCS: 88305; 88361

== ENCOUNTER → 2025-01-12 08:19 | Outpatient (BNVA) | payer MEDICARE, BC, SELFPAY | PROVIDERS: PCP Family Medicine; Referring Provider Family Medicine; Visit Provider Student in an Organized Health Care Education/Training Program | DX: L98.9 Disorder of the skin and subcutaneous tissue, unspecified (principal); R21 Rash and other nonspecific skin eruption | CPT/HCPCS: 99213; 11104 ==